=== PATIENT | male | born 1980 | race Caucasian/White ===

== ENCOUNTER → 2022-06-26 | Outpatient (CLI) | payer MEDICAID ==
[2022-06-26 10:41] LABS: Basophils # (A) 0.05 X 10*3/uL (0.00-0.10); Basophils % (A) 0.6 %; Eosinophils # (A) 0.11 X 10*3/uL (0.04-0.35); Eosinophils % (A) 1.4 %; HCT 46.2 % (39.6-50.0); HGB 15.8 g/dL (13.0-17.0); Immature Grans, Automated 0.5 %; Lymphocytes # (A) 1.84 X 10*3/uL (0.90-5.00); Lymphocytes % (A) 22.7 %; MCH 30.8 pg (27.0-32.0); MCHC 34.2 g/dL (32.0-37.0); MCV 90.1 fL (80.0-97.0); Mean Platelet Volume 10.2 fL (9.5-12.2); Monocytes # (A) 0.64 X 10*3/uL (0.20-1.00); Monocytes % (A) 7.9 %; NRBC Per 100 WBC 0 /100 WBCS (0.0-0.0); Neutrophils # (A) 5.44 X 10*3/uL (1.80-7.70); Neutrophils % (A) 66.9 %; Platelet Count 325 X 10*3/uL (140-440); RBC 5.13 X 10*6/uL (4.40-5.60); RDW 12.4 % (11.5-14.5); WBC 8.12 X 10*3/uL (4.50-10.00)
[2022-06-26 10:52] LABS: ALT 34 U/L (10-49); AST 26 U/L (14-35); African American GFR (CKD) 120.8 (60.0-200.0); Albumin 4.7 g/dL (3.8-4.9); Albumin/Globulin Ratio 1.81 (1.60-3.17); Alkaline Phosphatase 107 U/L (41-126); BUN/Creat Ratio 12.67 Ratio (12.00-20.00); Blood Urea Nitrogen 11.4 mg/dL (9.0-27.0); Calcium 9.4 mg/dL (8.7-10.3); Carbon Dioxide 22.5 mmol/L (20.0-27.5); Chloride 104 mmol/L (96-109); Chol/HDL Ratio 5.39 Ratio; Globulin 2.6 g/dL (1.6-3.3); Glucose 117 mg/dL (70-110); Non-African American GFR(CKD) 104.2 (60.0-200.0); Potassium 4.6 mmol/L (3.5-5.5); Sodium 139 mmol/L (135-145); Total Protein 7.3 g/dL (6.2-8.2)
== END | disposition home or self-care (01) ==
LOC: LABWHC1 07:09
PROVIDERS: ATTEND Internal Medicine Infectious Disease
DX: E78.2 Mixed hyperlipidemia (principal); E66.9 Obesity, unspecified
CPT/HCPCS: 36415; 80053; 80061; 85025

== ENCOUNTER → 2023-09-30 | Outpatient (CLI) | payer MEDICAID ==
[2023-09-30 16:29] LABS: Basophils # (A) 0.03 X 10*3/uL (0.00-0.10); Basophils % (A) 0.4 %; Eosinophils # (A) 0.05 X 10*3/uL (0.04-0.35); Eosinophils % (A) 0.6 %; HCT 47.4 % (39.6-50.0); HGB 16.3 d/dL (13.0-17.0); Lymphocytes # (A) 1.48 X 10*3/uL (0.90-5.00); Lymphocytes % (A) 17.7 %; MCH 31.7 pg (27.0-32.0); MCHC 34.4 d/dL (32.0-37.0); MCV 92.2 FL (80.0-97.0); Mean Platelet Volume 10.9 FL (9.5-12.2); Monocytes # (A) 0.48 X 10*3/uL (0.20-1.00); Monocytes % (A) 5.7 %; NRBC Per 100 WBC 0 X 10*3/uL (0.00-0.01); Neutrophils # (A) 6.29 X 10*3/uL (1.80-7.70); Neutrophils % (A) 75.4 %; Platelet Count 311 X 10*3/uL (140-440); RBC 5.14 X 10*6/uL (4.40-5.60); RDW 12.2 % (11.5-14.5); WBC 8.35 X 10*3/uL (4.50-10.00)
[2023-09-30 16:32] LABS: ALT 61 U/L (10-49); AST 30 U/L (14-35); Albumin 4.8 d/dL (3.8-4.9); Alkaline Phosphatase 142 U/L (41-126); BUN/Creat Ratio 13.67 Ratio (12.00-20.00); Blood Urea Nitrogen 12.3 mg/dL (9.0-27.0); Calcium 10.3 mg/dL (8.7-10.3); Carbon Dioxide 26.9 mmol/L (21.6-31.8); Chloride 101 mmol/L (96-109); Chol/HDL Ratio 4.21 Ratio; Globulin 2.4 d/dL (1.6-3.3); Glucose 112 mg/dL (70-110); LDL Cholesterol,Calculated 123.5 mg/dL (0.0-131.0); Magnesium 2.2 mg/dL (1.5-2.4); Potassium 4.4 mmol/L (3.5-5.5); Sodium 140 mmol/L (135-145); Total Bilirubin 0.7 mg/dL (0.3-1.2); Total Protein 7.2 d/dL (6.2-8.2)
[2023-09-30 17:51] LABS: Appearance,Urine Clear (Clear); Bilirubin,Urine Negative (Negative); Blood,Urine Negative (Negative); Color,Urine Yellow; Glucose,Urine (UA) Negative (Negative); Ketones,Urine Negative (Negative); Leukocyte Esterase,Urine Negative (Negative); Nitrite,Urine Negative (Negative); PH, Urine 5.5 (5.0-8.0); Protein,Urine Negative (Negative); Specific Gravity,Urine 1.024 (1.001-1.035); Urobilinogen,Urine <2.0 mg/dL (<2.0)
== END | disposition home or self-care (01) ==
LOC: LABWHC1 10:45
PROVIDERS: ATTEND Internal Medicine
DX: I10 Essential (primary) hypertension (principal); E78.2 Mixed hyperlipidemia; E55.9 Vitamin D deficiency, unspecified
CPT/HCPCS: 36415; 80053; 80061; 81003; 82306; 83036; 83735; 84443; 85025

== ENCOUNTER → 2023-10-07 | Outpatient (CLI) | payer SELFPAY ==
--- NOTE | 2023-10-07 09:53 | CT ---
EXAMINATION TYPE: CT heart w calcium score DATE OF EXAM: 10/07/2023 COMPARISON: None HISTORY: Screening for cardiovascular disorder. 213.9 CT DLP: 283.2 mGycm Automated exposure control for dose reduction was used. CT CALCIUM SCORING Coronary calcium is a marker for plaque (fatty deposits) in a blood vessel or atherosclerosis (harden ing of the arteries). The presence and amount of calcium detected in a coronary artery by the CT sca n, indicates the presence and amount of atherosclerotic plaque. These calcium deposits appear years before the development of heart disease symptoms such as chest pain and shortness of breath. A calcium score is computed for each of the coronary arteries based upon the volume and density of th e calcium deposits. This can be referred to as your calcified plaque burden. It does not correspond directly to the percentage of narrowing in the artery but does correlate with the severity of the un derlying coronary atherosclerosis. PROCEDURE TECHNIQUE - Prospective Gating was used. Slice thickness: 3mm. Density threshold (HU): 130, Pixel threshold: 3, Algorithm: discrete. 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 Subcentimeter nodularity within the prevascular space with coarse calcifications. IMPRESSION: Calcium Score: 101-400 Implication: Definite, at least moderate atherosclerotic plaque. Risk of Coronary Artery Disease: Mild coronary artery disease highly likely, significant narrowings p ossible CALCIUM SCORE IMPLICATION RISK OF C ORONARY ARTERY DISEASE 0 No identifiable plaque Very low, generally less than 5% 1-10 Minimal identifiable plaque Very unlikely, less than 10% 11-100 Definite, at least mild atherosclerotic plaque Mild or m inimal coronary narrowings likely 101-400 Definite, at least moderate atherosclerotic plaque Mild coronary ar celestino disease highly likely, significant narrowing possible 401 or Higher Extensive atherosclerotic plaque High lik elihood of at least one significant coronary narrowing
== END | disposition home or self-care (01) ==
LOC: RADCTMAIN 10-01 07:32
PROVIDERS: ATTEND Internal Medicine
DX: Z13.6 Encounter for screening for cardiovascular disorders (principal); I25.10 Atherosclerotic heart disease of native coronary artery without angina pectoris
CPT/HCPCS: 75571

== ENCOUNTER → 2024-01-19 | Outpatient (CLI) | payer MEDICAID ==
--- NOTE | 2024-01-19 14:14 | MR ---
EXAMINATION TYPE: MR MRA/MRV head wo con DATE OF EXAM: 01/19/2024 1:17 PM CLINICAL INDICATION:Male, 43 years old with history of Z82.49 family hx brain aneurysm; PHH, Family h x of brain aneurysm COMPARISON: None TECHNIQUE: MRA brain: 3-D [id number] Axial with MIP and 3-D reconstruction performed on a separate workstati on. MRV of the brain: performed utilizing two-dimensional [id number] technique MIP and 3-D reconstruc tion. Performed on a separate workstation. IV Contrast: cc (None if empty) Findings: Vertebral arteries: The vertebral arteries are patent. The codominant vertebral arteries. Basilar artery: The basilar artery is intact. The basilar artery bifurcation is normal. Internal Carotid arteries: The cervical, petrous, cavernous and supraclinoid segments are normal. LIANE: Patent without evidence of aneurysm. ACOM: Patent without evidence of aneurysm. MCA: Patent without evidence of aneurysm. KNIFER UP: Patent without evidence of aneurysm. PCOM: Hypoplastic bilaterally. There is no evidence of venous occlusion or collateral circulation. There is no evidence of sinus th rombosis. IMPRESSION: 1. No evidence of venous sinus thrombosis. 2. No evidence of intracranial aneurysm or significant stenosis.
== END | disposition home or self-care (01) ==
LOC: RADMRIMAIN 10:05
PROVIDERS: ATTEND Internal Medicine
DX: Q60.4 Renal hypoplasia, bilateral (principal); Z82.49 Family history of ischemic heart disease and other diseases of the circulatory system
CPT/HCPCS: 70544

== ENCOUNTER → 2024-01-22 | Outpatient (CLI) | payer MEDICAID ==
--- NOTE | 2024-01-22 12:33 | CA ---
Exercise Nuclear Stress Test Report Name: Javy Velasquez Exam Date: 01/22/2024 08:57 Exam Location: [facility] Ht (in): 68 Wt (lb): 275 BSA: 2.34 Ordering Phys: Jamel Saini MD Referring Phys: JAMEL SAINI Technologist: BLAYNE/EDDIE Age: 43 Gender: M : 1980 Procedure CPT: Indications: I25.10 ATHSCL HEART DISEASE OF [place] CORONARY ART ICD-10 Codes: Patient History: Abnormal CT, hypertension and family history of heart disease Medications: Meds past 24 hrs: Pretest Chest Pain: STRESS TEST Anibal Protocol Exercise Duration (min:sec): 09:[address] Depressions (mm): Angina Score: Otto Score: Resting HR (bpm): 79 Peak HR (bpm): 173 Resting BP (mmHg): 117 / 88 Peak BP (mmHg): 192 / 62 MPHR: 176 Target HR: 150 % MPHR: 98 METS: 11.2 Total Dose: Peak Dose: Atropine: Double Product: 58230 BP Response: Stress Termination: Reached target heart rate Stress Symptoms: No chest pain or symptoms Stress Summary: ECG ANALYSIS Resting ECG: Normal sinus rhythm, normal axis, heart rate 80 beats a minute Stress ECG: Nonspecific T-wave inversions at at early exercise stage which evolved to nonspecific T-wave flattening . These changes returned back to baseline in early recovery. There were no sustained arrhythmias ectopic beat. CONCLUSIONS Good excess tolerance for age achieving 11.2 minutes Nonischemic ECG response to treadmill exercise Normal hemodynamic and clinical response with treadmill exercise Normal ECG portion of the treadmill nuclear stress test Please refer to the nuclear imaging portion of the stress test for the complete interpretation of this study Dr Von Lobo (Electronically Signed) Final Date: 22 January 2024 12:33
--- NOTE | 2024-01-22 17:25 | NM ---
EXAMINATION TYPE: NM stress cardiolite complete DATE OF EXAM: 01/22/2024 COMPARISON: NONE CLINICAL INDICATION: Male, 43 years old with history of I25.10 ATHSCL HEART DISEASE OF [place] CORONAR Y ART; TECHNIQUE: After the intravenous administration of 9.9 mCi Tc 99m Sestamibi - Rest images obtained 6 0 minutes post injection. The patient exercised using a GABBI protocol and 1 minute prior to peak e xercise was injected with 25.9 mCi Tc 99m Sestamibi - Stress images obtained 15 minutes post injectio n. FINDINGS: Targeted heart rate (150 BPM) was achieved during performance of the study (173 BPM achieved) with to howard exercise time 9 minutes 30 seconds. Review of stress and rest SPECT images demonstrates fixed per fusion defect along the mid to basal inferior wall and basal inferoseptal and septal roberts. No discre te reversibility is seen. Gated analysis shows normal wall motion with an estimated left ventricular ejection fraction of 67 %. TID is calculated at 0.95, within normal limits. IMPRESSION: 1. Areas of fixed defect along the inferior and inferoseptal roberts suspected to be on the basis of pr ominent diaphragmatic attenuation artifact rather than old infarct. Clinically correlate. 2. No scintigraphic evidence for inducible ischemia.
== END ==
LOC: RADNMMAIN 07:30
PROVIDERS: ATTEND Internal Medicine
DX: I25.10 Atherosclerotic heart disease of native coronary artery without angina pectoris (principal); I10 Essential (primary) hypertension
CPT/HCPCS: 93017; 78452; A9500

== ENCOUNTER → 2024-02-08 | Outpatient (CLI) | payer MEDICAID ==
--- NOTE | 2024-02-09 09:49 | CA ---
Transthoracic Echo Report Name: Javy Velasquez Age: 43 Gender: M : 1980 Exam Date: 02/08/2024 13:36 Exam Location: [facility] Ht (in): 69 Wt (lb): 275 Ordering Physician: Yaya Lloyd MD Attending/Referring Phys: Associate Web Developer Debbie Holliday RDCS Procedure CPT: Indications: dyspnea Cardiac Hx: Technical Quality: Fair Contrast 1: Total Dose (mL): Contrast 2: Total Dose (mL): MEASUREMENTS (Male / Female) Normal Values 2D ECHO LV Diastolic Diameter PLAX 3.2 cm 4.2 - 5.9 / 3.9 - 5.3 cm LV Systolic Diameter PLAX 2.0 cm IVS Diastolic Thickness 1.4 cm 0.6 - 1.0 / 0.6 - 0.9 cm LVPW Diastolic Thickness 1.5 cm 0.6 - 1.0 / 0.6 - 0.9 cm LV Relative Wall Thickness 0.9 RV Internal Dim ED PLAX 3.5 cm LVOT Diameter 2.0 cm LA Volume 71.5 cm??? 18 - 58 / 22 - 52 cm??? LA Volume Index 28.4 cm???/m??? 16 - 28 cm???/m??? M-MODE Aortic Root Diameter MM 3.1 cm LA Systolic Diameter MM 5.3 cm LA Ao Ratio MM 1.7 AV Cusp Separation MM 2.2 cm DOPPLER AV Peak Velocity 109.6 cm/s AV Peak Gradient 4.8 mmHg AV Mean Velocity 79.0 cm/s AV Mean Gradient 2.7 mmHg AV Velocity Time Integral 20.2 cm LVOT Peak Velocity 107.1 cm/s LVOT Peak Gradient 4.6 mmHg LVOT Velocity Time Integral 20.1 cm LVOT Stroke Volume 64.0 cm??? LVOT Stroke Volume Index 27.1 ml/m??? LVOT Cardiac Index 1930.4 cm???/min???m??? AV Area Cont Eq vti 3.2 cm??? AV Area Cont Eq pk 3.1 cm??? MV Area PHT 3.2 cm??? Mitral E Point Velocity 73.5 cm/s Mitral A Point Velocity 62.0 cm/s Mitral E to A Ratio 1.2 MV Deceleration Time 238.3 ms MV E' Velocity 7.3 cm/s Mitral E to MV E' Ratio 10.0 TR Peak Velocity 215.3 cm/s TR Peak Gradient 18.5 mmHg Right Ventricular Systolic Press 23.5 mmHg FINDINGS Left Ventricle Mildly increased left ventricular wall thickness. Left ventricular cavity size normal. Normal left ventricular systolic function with no obvious regional wall motion abnormalities. Left ventricular ejection fraction is estimated at 55-60 %. Right Ventricle Mild right ventricular dilatation. Normal right ventricular global systolic function. Right ventricular systolic pressure within normal limits. Right Atrium Normal right atrial size. Left Atrium Moderately increased left atrial volume. Mitral Valve Structurally normal mitral valve. No evidence for mitral valve prolapse. No mitral stenosis. Mild mitral regurgitation. Aortic Valve Trileaflet aortic valve. No aortic valve stenosis or regurgitation. Tricuspid Valve Structurally normal tricuspid valve. Mild tricuspid regurgitation. Pulmonic Valve Structurally normal pulmonic valve. Pericardium No pericardial effusion. Aorta Normal size aortic root and proximal ascending aorta. CONCLUSIONS Normal LV systolic function Mildly dilated right ventricle with normal function Poorly visualized aortic valve Previewed by: Dr. Gold Adams MD (Electronically Signed) Final Date: 09 February 2024 09:48
== END | disposition home or self-care (01) ==
LOC: RADECHMAIN 13:35
PROVIDERS: ATTEND Internal Medicine
DX: I51.7 Cardiomegaly (principal); R94.39 Abnormal result of other cardiovascular function study; R06.00 Dyspnea, unspecified
CPT/HCPCS: 93306

== ENCOUNTER → 2025-06-13 | Outpatient (CLI) | payer MEDICAID ==
--- NOTE | 2025-06-14 12:19 | CA ---
Transthoracic Echo Report Name: Javy Velasquez Age: 45 Gender: M : 1980 Exam Date: 06/13/2025 13:53 Exam Location: [facility] Ht (in): 69 Wt (lb): 272 Ordering Physician: Yaya Lloyd MD Attending/Referring Phys: Instructor Adjunct Pharmacy Technician Michelle Busch RDCS Procedure CPT: Indications: I25.10 ATHSCL HEART DISEASE OF [place] CORONARY ART Cardiac Hx: Technical Quality: Fair Contrast 1: Total Dose (mL): Contrast 2: Total Dose (mL): MEASUREMENTS (Male / Female) Normal Values 2D ECHO LV Diastolic Diameter PLAX 4.4 cm 4.2 - 5.9 / 3.9 - 5.3 cm LV Systolic Diameter PLAX 2.2 cm IVS Diastolic Thickness 1.3 cm 0.6 - 1.0 / 0.6 - 0.9 cm LVPW Diastolic Thickness 1.2 cm 0.6 - 1.0 / 0.6 - 0.9 cm LV Relative Wall Thickness 0.6 RV Internal Dim ED PLAX 3.3 cm LVOT Diameter 2.1 cm LA Systolic Diameter LX 4.4 cm 3.0 - 4.0 / 2.7 - 3.8 cm LV Diastolic Volume MOD BP 99.9 cm??? 67 - 155 / 56 - 104 cm??? LV Systolic Volume MOD BP 34.2 cm??? - / 19 - 49 cm??? LV Ejection Fraction MOD BP 65.8 % >= 55 % LV Cardiac Index MOD BP 2073.4 cm???/min???m??? LV Diastolic Volume MOD 4C 104.2 cm??? LV Systolic Volume MOD 4C 24.4 cm??? LV Ejection Fraction MOD 4C 76.5 % LV Cardiac Index MOD 4C 2513.4 cm???/min???m??? LV Diastolic Length 4C 9.5 cm LV Systolic Length 4C 7.8 cm LV Diastolic Volume MOD 2C 90.9 cm??? LV Systolic Volume MOD 2C 29.9 cm??? LV Ejection Fraction MOD 2C 67.1 % LV Cardiac Index MOD 2C 1920.9 cm???/min???m??? LV Diastolic Length 2C 9.0 cm LV Systolic Length 2C 4.7 cm LA Volume 73.5 cm??? 18 - 58 / 22 - 52 cm??? LA Volume Index 29.3 cm???/m??? 16 - 28 cm???/m??? M-MODE Aortic Root Diameter MM 3.0 cm LA Systolic Diameter MM 3.3 cm LA Ao Ratio MM 1.1 AV Cusp Separation MM 1.9 cm DOPPLER LVOT Peak Velocity 112.0 cm/s LVOT Peak Gradient 5.0 mmHg LVOT Velocity Time Integral 21.4 cm LVOT Stroke Volume 76.9 cm??? LVOT Stroke Volume Index 32.7 ml/m??? LVOT Cardiac Index 2423.3 cm???/min???m??? MV Area PHT 2.8 cm??? Mitral E Point Velocity 65.9 cm/s Mitral A Point Velocity 74.6 cm/s Mitral E to A Ratio 0.9 MV Deceleration Time 273.5 ms TR Peak Velocity 230.6 cm/s TR Peak Gradient 21.3 mmHg FINDINGS Left Ventricle Left ventricular ejection fraction is estimated at 55-60%. Mildly increased septal wall thickness. Left ventricular cavity size normal. Mild concentric left ventricular hypertrophy. Normal left ventricular systolic function with no obvious regional wall motion abnormalities. Right Ventricle Normal right ventricular size and function. Right ventricular systolic pressure within normal limits. Right Atrium Mild right atrial dilatation. Left Atrium Mildly increased left atrial diameter. Mildly increased left atrial volume. Mildly increased left atrial area. Mitral Valve Structurally normal mitral valve. Trace mitral regurgitation. No mitral stenosis. Aortic Valve Trileaflet aortic valve. No aortic valve stenosis or regurgitation. Tricuspid Valve Structurally normal tricuspid valve. Trace to mild tricuspid regurgitation. No tricuspid stenosis. Pulmonic Valve Structurally normal pulmonic valve. Trace pulmonic regurgitation. No pulmonic stenosis. Pericardium No pericardial or pleural effusion. Aorta Normal size aortic root and proximal ascending aorta. CONCLUSIONS Normal biventricular systolic function Normal pulmonary artery systolic pressure No significant valvular abnormalities noted No pericardial effusion Previewed by: Dr. Gold Adams MD (Electronically Signed) Final Date: 14 June 2025 12:18
== END | disposition home or self-care (01) ==
LOC: RADECHMAIN 13:47
PROVIDERS: ATTEND Internal Medicine
DX: I25.10 Atherosclerotic heart disease of native coronary artery without angina pectoris (principal)
CPT/HCPCS: 93306